=== PATIENT | male | born 1965 | race Caucasian/White ===

== ENCOUNTER 2016-09-10 21:37 | Inpatient (IN) | payer MEDICARE, MEDICAID ==
[2016-09-10 22:53] LABS: Hematocrit 36 % (42-52); Hemoglobin 11.5 g/dl (14.0-18.0); Mean Corpuscular HGB Conc 32 g/dl (31-36); Mean Corpuscular Hemoglobin 32 pg (27-31); Mean Corpuscular Volume 99 fL (80-94); Red Cell Distribution Width 19 % (10.5-15)
[2016-09-10 22:54] LABS: Add Diff/Slide Review? Slide Review Added; Comments Flag Yes
[2016-09-10 23:12] LABS: Mean Platelet Volume 10 um3 (7.4-10.4)
[2016-09-10 23:13] LABS: ALT 20 U/L (7-52); Albumin 4.4 g/dL (3.2-5.2); Alkaline Phosphatase 83 U/L (34-104); BUN/Creatinine Ratio 4.7 (8-20); Blood Urea Nitrogen 44 mg/dL (6-24); CO2 Carbon Dioxide 25 mmol/L (22-32); Calcium 9.3 mg/dL (8.6-10.3); Chloride 93 mmol/L (101-111); EGFR African American 7.7 (>60); Globulin 3.1 g/dL (2-4); Glucose 99 mg/dL (70-100); Macrocytosis 1+; Microcytosis 1+; Sodium 129 mmol/L (133-145); Total Protein 7.5 g/dL (6.4-8.9); Troponin I 0.13 ng/mL (<0.04)
[2016-09-11] MEDS ORDERED: Labetalol IV* 5 MG/ML 20 ML VIAL IV PUSH ONE ×2 (00:19→02:54)
[2016-09-11 00:20] LABS: Acetaminophen < 15 mcg/mL; Alcohol < 10 mg/dL (<10); Salicylate < 2.50 mg/dL (<30)
[2016-09-11] MEDS ORDERED: cefTRIAXone(*) 1 GM in NS 0.9% 50 ML* 50 ML IVPB ONE (03:08)
[2016-09-11 03:29] LABS: C Reactive Protein 90.15 mg/L (< 5.00)
[2016-09-11 03:53] LABS: Creatine Kinase 970 U/L (10-223)
[2016-09-11 03:56] LABS: Erythrocyte Sed Rate 20 mm/Hr (0-14)
[2016-09-11] MEDS ORDERED: hydrALAZINE IV* 20 MG/ML VIAL IV SLOW PU ONE ×3 (03:58→08:17)
--- NOTE | 2016-09-11 04:30 | HP ---
MEDICATION ADDENDUM NOW INCLUDED ON THIS REPORT ADMISSION HISTORY AND PHYSICAL: DATE OF ADMISSION: 09/11/16 PRIMARY CARE PROVIDER: Dr. Luis Landin. HEALTHCARE PROXY: None. CODE STATUS: Unable to establish. SOURCE OF INFORMATION: History obtained from EMS reports, discussion with ED providers, and brief discussion with Dr. Brooks. CHIEF COMPLAINT: Found altered mental status. HISTORY OF PRESENT ILLNESS: This is a 50-year-old man with a past medical history of end-stage renal disease, on hemodialysis, has been staying with his girlfriend in [place]. Apparently, he then altered and weak all day. He was unable to go to his dialysis session today. EMS was activated and he was found lying on the floor supine, first floor of the residence. He was transferred to [facility] [place], where he was found to be hypertensive, systolic blood pressures greatest 210/126. The patient able to participate in his history of present illness. His only contact was his girlfriend who did not leave her telephone number and was unable to contact her at this time. We discussed the care with Dr. Brooks, whose nursing staff indicated that when he was seen in dialysis clinic on Wednesday, they thought him to be altered and the perception that he may have been abusing drugs. In the ED, he received labetalol 20 mg x1 prior to hospitalist's consultation. Additionally, nursing was able to obtain from the patient's ____ that he does not make any urine and had been incontinent of stool. PAST MEDICAL HISTORY: End-stage renal disease, on hemodialysis; hypertension, otherwise unable to obtain. MEDICATIONS: Unable to obtain. ALLERGIES: Unable to obtain. FAMILY HISTORY: Unable to obtain. SOCIAL HISTORY: Unable to obtain. REVIEW OF SYSTEMS: Unable to obtain. PHYSICAL EXAMINATION GENERAL: Lying flat in bed, wakes to touch. Able to say his first name as Nestor. Quickly goes back to sleep. He was able to indicate that he was at the hospital. When touched, he just says aww, aww, aww. Unable to identify if he has any pain. I strongly asked the patient to sit up, he was able to sit up on the edge of the bed. He was wobbly, swing back and forth, would not lie back down when asked. Does not follow commands. He had no notable tremor. He was unable to establish asterixis. The patient will not put his arms out. VITAL SIGNS: When seen by this author, 196/94, heart rate 83, respiratory rate 16, 95% on 2 L, T-max in the emergency room 97.3. HEENT: Pupils are equal, round, and reactive to light. Unable to assess extraocular muscles. His face was symmetric. LUNGS: Clear. HEART: Regular rate and rhythm. ABDOMEN: Soft, nontender, and nondistended. EXTREMITIES: Warm and well-perfused without clubbing, cyanosis, or edema. SKIN: He has no notable skin breakdown. He has a fistula in his right arm with a good thrill and bruit. His skin has notable small scabs over his face, throughout his arms, of unknown etiology. DIAGNOSTIC STUDIES/LAB DATA: Labs reviewed: BUN 44, creatinine 9.36, lactic acid 1.9. Troponin 0.13. White blood cell count of 11, hemoglobin 11.5, platelets 105. Alcohol, acetaminophen, salicylates all negative. Brain CT overnight, impression: No involutional changes, no hemorrhage, no mass , no visible infarct, no hydrocephalus, shift or herniation. Chest x-ray on this author's read appears with mild pulmonary vascular congestion. ASSESSMENT AND PLAN: This is a 50-year-old man, known end-stage renal disease, on hemodialysis, presenting with altered mental status. 1. Altered mental status: Unknown etiology at this time. Certainly appears toxic metabolic, potentially drugs is confounding. Did not make urine. Cannot check urine for drugs. Needs serum test. Additionally, I think the patient will benefit from MRI just to rule out other etiologies such as posterior reversible encephalopathy syndrome in the setting of hypertensive urgency. Additionally, hypertension can be contributing to this patient's presentation. Needs closer control, received labetalol now and follow closely. The patient may benefit from a drip if repeated doses of antihypertensives do not help. In setting of leukocytosis, we will dose one-time dose ceftriaxone at this time. No other indication that the patient has an infection. We will add procalcitonin, although with unclear etiology of altered mental status, we will treat him with antibiotics for leukocytosis. Doubt meningitis in the absence of any fever, although certainly if blood pressure is controlled or has any fevers, will benefit from lumbar puncture. 2. End-stage renal disease. Discussed with Dr. Brooks. He will be dialyzed tomorrow. 3. Increased troponin. Suspect in the setting of hypertensive urgency, repeat troponin now. 4. DVT prophylaxis. Heparin subcu. ADDENDUM: HOME MEDICATIONS: Patient arrived with a bag of his home medications, which included: 1. Trazodone 50 mg at bedtime as needed. 2. 800 mg three times daily. 3. Gabapentin 300 mg daily. 4. Lexapro 20 mg daily. 5. Doxycycline 100 mg daily as needed. 6. Clonidine 0.1 mg daily. 7. Carvedilol 25 mg daily. 8. Additionally, patient had an EpiPen, although his allergy is unknown at this time. [id number]/[facility]PS #: [id number]/CPS #: [id number] FARSHAD
[2016-09-11] MEDS ORDERED: hydrALAZINE TAB* 10 MG PO ONE (05:11)
--- NOTE | 2016-09-11 05:28 | HP ---
ADDENDUM:* HOME MEDICATIONS: Patient arrived with a bag of his home medications, which included trazodone 50 mg at bedtime as needed, 800 mg three times daily, gabapentin 300 mg daily, Lexapro 20 mg daily, doxycycline 100 mg daily as needed , clonidine 0.1 mg daily, and carvedilol 25 mg daily. Additionally, patient had an EpiPen, although his allergy is unknown at this time. [id number]/[facility] #: [id number] [facility]
[2016-09-11] MEDS: Heparin VIAL(*) 5000 UNITS/ML VIAL (FIVE THOUSAND) SUBCUT SCH ×3 (05:51→23:41)
[2016-09-11] MEDS: cloNIDine 0.3 MG PATCH* 0.3 MG/24 HR 7 DAY PATCH TRANSDERM SCH (06:32)
[2016-09-11] MEDS: Acetaminophen TAB* 325 MG PO PRN ×2 (06:34→10:25)
--- NOTE | 2016-09-11 06:49 | ED ---
Clarence, DoctorPreethi, scribed for Rosemarie Rivera MD on 09/11/16 at 0116 . HPI Diabetic - HPI Summary HPI Summary: 50 year old male arrived to [facility] by EMS with AMS. Pt non-responsive, paperwork indicate that he is a diabetic pt who missed his dialysis today. He has PMHx of End Stage Renal Disease, doesn't appear to be on any medications. HPI limited due to Level 5 caveat. - History Of Current Complaint Chief Complaint: EDAltMentalStatus Time Seen by Provider: 09/10/16 21:48 Hx Obtained From: Other: - Level 5 caveat - Allergies/Home Medications Allergies/Adverse Reactions: Allergies Allergy/AdvReac Type Severity Reaction Status Date / Time Unable to Obtain Allergy Verified 09/10/16 21:45 Home Medications: Home Medications Carvedilol [Coreg] 25 mg PO DAILY 09/11/16 [History Confirmed 09/11/16] Clonidine HCl [Catapres 0.1 MG TAB] 0.1 mg PO DAILY 09/11/16 [History Confirmed 09/11/16] Doxycycline Hyclate [Morgidox [id number]] 100 mg PO DAILY PRN 09/11/16 [History Confirmed 09/11/16] Escitalopram Oxalate [Lexapro] 20 mg PO DAILY 09/11/16 [History Confirmed ] Gabapentin CAP(*) [Neurontin 300 CAP(*)] 300 mg PO DAILY 09/11/16 [History Confirmed 09/11/16] Sevelamer TAB* [Renvela TAB*] 800 mg PO TID 09/11/16 [History Confirmed 09/11/16 ] traZODone TAB* [Desyrel TAB*] 50 mg PO BEDTIME PRN 09/11/16 [History Confirmed 09/11/16] PMH/Surg Hx/FS Hx/Imm Hx Endocrine/Hematology History: Reports: Hx Diabetes Infectious Disease History: Denies: Traveled Outside the [place] in Last 30 Days - Social History Alcohol Use: None Substance Use Type: Reports: None Smoking Status (MU): Unknown if Ever Smoked Review of Systems - ROS Summary Review of Systems Summary: ROS limited due to Level 5 Caveat. Negative: Fever All Other Systems Reviewed And Are Negative: No Physical Exam - Summary Physical Exam Summary: PE Unobtainable due to Level 5 Caveat Triage Information Reviewed: Yes Vital Signs On Initial Exam: Initial Vitals Temp Pulse Resp BP Pulse Ox 97.3 F 97 16 174/149 97 09/10/16 21:40 09/10/16 21:40 09/10/16 21:40 09/10/16 21:40 09/10/16 21:40 Vital Signs Reviewed: Yes Diagnostics - Vital Signs Vital Signs Temp Pulse Resp BP Pulse Ox 09/10/16 23:37 92 16 205/118 93 09/10/16 21:40 97.3 F 97 16 174/149 97 - Laboratory Lab Results: Lab Results 09/10/16 09/10/16 09/10/16 Range/Units 22:45 22:45 22:45 WBC 11.0 H (3.5-10.8) 10^3/ul RBC 3.60 L (4.0-5.4) 10^6/ul Hgb 11.5 L (14.0-18.0) g/dl Hct 36 L (42-52) % MCV 99 H (80-94) fL MCH 32 H (27-31) pg MCHC 32 (31-36) g/dl RDW 19 H (10.5-15) % Plt Count 105 L (150-450) 10^3/ul MPV 10 (7.4-10.4) um3 Neut % (Auto) 84.4 H (38-83) % Lymph % (Auto) 6.6 L (25-47) % [place] % (Auto) 7.8 (1-9) % Eos % (Auto) 0 (0-6) % Baso % (Auto) 1.2 (0-2) % Absolute Neuts (auto) 9.3 H (1.5-7.7) 10^3/ul Absolute Lymphs (auto) 0.7 L (1.0-4.8) 10^3/ul Absolute Monos (auto) 0.9 H (0-0.8) 10^3/ul Absolute Eos (auto) 0 (0-0.6) 10^3/ul Absolute Basos (auto) 0.1 (0-0.2) 10^3/ul Absolute Nucleated RBC 0.01 10^3/ul Nucleated RBC % 0.1 Normal RBC Morphology Not Reportable Microcytosis 1+ Macrocytosis 1+ Elliptocytes 1+ Sodium 129 L (133-145) mmol/L Potassium TNP Chloride 93 L (101-111) mmol/L Carbon Dioxide 25 (22-32) mmol/L Anion Gap TNP BUN 44 H (6-24) mg/dL Creatinine 9.36 H (0.67-1.17) mg/dL Est GFR ( Amer) 7.7 (>60) Est GFR (Non-Af Amer) 6.0 (>60) BUN/Creatinine Ratio 4.7 L (8-20) Glucose 99 (70-100) mg/dL Lactic Acid (0.5-2.0) mmol/L Calcium 9.3 (8.6-10.3) mg/dL Total Bilirubin 1.20 H (0.2-1.0) mg/dL AST TNP ALT 20 (7-52) U/L Alkaline Phosphatase 83 (34-104) U/L Ammonia 34 (16-53) mol/L Troponin I 0.13 H* (<0.04) ng/mL Total Protein 7.5 (6.4-8.9) g/dL Albumin 4.4 (3.2-5.2) g/dL Globulin 3.1 (2-4) g/dL Albumin/Globulin Ratio 1.4 (1-3) Salicylates Pending Acetaminophen Pending Serum Alcohol Pending 09/10/16 Range/Units 22:45 WBC (3.5-10.8) 10^3/ul RBC (4.0-5.4) 10^6/ul Hgb (14.0-18.0) g/dl Hct (42-52) % MCV (80-94) fL MCH (27-31) pg MCHC (31-36) g/dl RDW (10.5-15) % Plt Count (150-450) 10^3/ul MPV (7.4-10.4) um3 Neut % (Auto) (38-83) % Lymph % (Auto) (25-47) % [place] % (Auto) (1-9) % Eos % (Auto) (0-6) % Baso % (Auto) (0-2) % Absolute Neuts (auto) (1.5-7.7) 10^3/ul Absolute Lymphs (auto) (1.0-4.8) 10^3/ul Absolute Monos (auto) (0-0.8) 10^3/ul Absolute Eos (auto) (0-0.6) 10^3/ul Absolute Basos (auto) (0-0.2) 10^3/ul Absolute Nucleated RBC 10^3/ul Nucleated RBC % Normal RBC Morphology Microcytosis Macrocytosis Elliptocytes Sodium (133-145) mmol/L Potassium Chloride (101-111) mmol/L Carbon Dioxide (22-32) mmol/L Anion Gap BUN (6-24) mg/dL Creatinine (0.67-1.17) mg/dL Est GFR ( Amer) (>60) Est GFR (Non-Af Amer) (>60) BUN/Creatinine Ratio (8-20) Glucose (70-100) mg/dL Lactic Acid 1.9 (0.5-2.0) mmol/L Calcium (8.6-10.3) mg/dL Total Bilirubin (0.2-1.0) mg/dL AST ALT (7-52) U/L Alkaline Phosphatase (34-104) U/L Ammonia (16-53) mol/L Troponin I (<0.04) ng/mL Total Protein (6.4-8.9) g/dL Albumin (3.2-5.2) g/dL Globulin (2-4) g/dL Albumin/Globulin Ratio (1-3) Salicylates Acetaminophen Serum Alcohol Result Diagrams: 09/10/16 22:45 09/11/16 00:10 Lab Statement: Any lab studies that have been ordered have been reviewed, and results considered in the medical decision making process. - CT Brain CT CT Interpretation Completed By: ED Physician - FINDINGS: Minimal involutional changes. No hemorrhage. No mass. No visible infarct. No hydrocephalus shift or herniation, Radiologist - FINDINGS: Minimal involutional changes. No hemorrhage. No mass. No visible infarct. No hydrocephalus shift or herniation - EKG 22:42 Cardiac Rate: NL - 89 bpm EKG Rhythm: Sinus Rhythm EKG Interpretation: [facility] EKG Comparison: Other - none to compare 23:21 Cardiac Rate: NL - 95 bpm EKG Rhythm: Sinus Rhythm Ectopy: None EKG Interpretation: [facility] EKG Comparison: No Significant Change - from EKG on 03/16 at 23:21 Diabetic Course/Dx - Course Course Of Treatment: 50 yo pt not known to this facility with esrd who apparently missed dialysis yesterday with ams, only responding yes or no to answers. Pt admitted by Dr. Concepcion, Ct brain negative - Diagnoses Provider Diagnoses: Altered mental state Discharge - Discharge Plan Condition: Guarded Disposition: ADMITTED TO [facility] documentation as recorded by the Doctor booker Tahera accurately reflects the service I personally performed and the decisions made by me, Rosemarie Rivera MD.
[2016-09-11 06:56] LABS: Hematocrit 35 % (42-52); Hemoglobin 11.3 g/dl (14.0-18.0); Mean Corpuscular HGB Conc 33 g/dl (31-36); Mean Corpuscular Hemoglobin 32 pg (27-31); Mean Corpuscular Volume 98 fL (80-94); Mean Platelet Volume 11 um3 (7.4-10.4); Red Blood Count 3.54 10^6/ul (4.0-5.4); Red Cell Distribution Width 19 % (10.5-15); White Blood Count 12.2 10^3/ul (3.5-10.8)
[2016-09-11 06:57] LABS: Comments Flag Yes
[2016-09-11 06:58] LABS: Add Diff/Slide Review? Slide Review Added
[2016-09-11 07:29] LABS: BUN/Creatinine Ratio 5.2 (8-20); Calcium 9.5 mg/dL (8.6-10.3); EGFR Non-African American 5.5 (>60); Potassium 5.5 mmol/L (3.5-5.0)
--- NOTE | 2016-09-11 07:36 | RAD ---
HISTORY: Altered mental status COMPARISONS: None TECHNIQUE: Multiple contiguous axial CT scans were obtained of the head without intravenous contrast. FINDINGS: HEMORRHAGE/INFARCT: There is no hemorrhage or acute infarct. MASSES/SHIFT: There is no mass or shift. EXTRA-AXIAL SPACES: There are no extra-axial fluid collections. SULCI AND VENTRICLES: The sulci and ventricles are normal in size and position for the patient's stated age. CEREBRUM: There are no focal parenchymal abnormalities. BRAINSTEM: There are no focal parenchymal abnormalities. CEREBELLUM: There are no focal parenchymal abnormalities. VESSELS: The vessels are grossly normal. PARANASAL SINUSES: The paranasal sinuses are clear. ORBITS: The orbits are unremarkable. BONES AND SOFT TISSUE: No bone or soft tissue abnormalities are noted. OTHER: None IMPRESSION: NO ACUTE INTRACRANIAL PATHOLOGY.
--- NOTE | 2016-09-11 07:39 | RAD ---
INDICATION: Altered mental status COMPARISON: None TECHNIQUE: AP seated portable imaging performed at 2257 hours is submitted. FINDINGS: Bones/Soft Tissues: There are no acute bony findings. Cardiomediastinal: The cardiac silhouette is mildly enlarged. The central hilar structures and interstitium are prominent and are most consistent with interstitial congestion. Lungs: There are no focal consolidative changes. Given the diffuse interstitial process, coexistent infiltrates are not excluded particularly in the right lung base. Suggest follow-up Pleura: There are no pleural effusions. Other: None IMPRESSION: SUSPECT INTERSTITIAL CONGESTION BUT THIS MUST BE CORRELATED WITH THE CLINICAL HISTORY
[2016-09-11] MEDS: Sevelamer TAB* 800 MG PO SCH ×4 (08:43→21:36)
[2016-09-11] MEDS: Gabapentin CAP(*) 300 MG PO SCH (08:43)
[2016-09-11] MEDS: Carvedilol TAB* 25 MG PO SCH (08:44)
[2016-09-11] MEDS: Citalopram TAB* 40 MG PO SCH (08:44)
[2016-09-11] MEDS ORDERED: Naloxone* 0.4 MG/ML 1 ML VIAL IV PUSH ONE (08:48)
[2016-09-11] MEDS ORDERED: cloNIDine TAB* 0.1 MG PO SCH (09:00)
[2016-09-11] MEDS ORDERED: Vancomycin(*) 1,000 MG in NS 0.9% 250 ML* 250 ML IVPB ONE (17:00)
[2016-09-12] MEDS: cefTRIAXone VIAL(*) 1,000 MG in NS 0.9% 50 ML* 50 ML IVPB SCH (04:13)
[2016-09-12] MEDS: Heparin VIAL(*) 5000 UNITS/ML VIAL (FIVE THOUSAND) SUBCUT SCH ×4 (04:58→23:02)
[2016-09-12] MEDS: Acetaminophen TAB* 325 MG PO PRN ×2 (06:37→12:11)
[2016-09-12 06:48] LABS: Hematocrit 33 % (42-52); Hemoglobin 10.9 g/dl (14.0-18.0); Mean Corpuscular HGB Conc 33 g/dl (31-36); Mean Corpuscular Hemoglobin 32 pg (27-31); Mean Corpuscular Volume 97 fL (80-94); Mean Platelet Volume 10 um3 (7.4-10.4); Red Cell Distribution Width 18 % (10.5-15); White Blood Count 9.8 10^3/ul (3.5-10.8)
[2016-09-12 06:49] LABS: Comments Flag Yes
[2016-09-12] MEDS: Gabapentin CAP(*) 300 MG PO SCH (08:48)
[2016-09-12] MEDS: Citalopram TAB* 40 MG PO SCH (08:49)
[2016-09-12] MEDS: Sevelamer TAB* 800 MG PO SCH ×3 (08:49→23:02)
[2016-09-12] MEDS: Carvedilol TAB* 25 MG PO SCH (08:49)
--- NOTE | 2016-09-12 19:28 | PN ---
Subjective Date of Service: 09/12/16 Interval History: . [place] [facility] [place] status and I gave Narcan on suspicion of opiate overdose. He certainly responded, and then went to dialysis and had further improvement. Patient will not divulge exact meds taken, because he wants to continue taking them to treat his pain. I could not have an intelligible conversation with Mr. Jiang. Called his mother, Kassidy Jiang, at [phone] -- did not get through Called his niece Kimberlee Blandon at [phone] - was told this is a wrong number At this time, I cannot be confident this is a safe discharge, and will look for further improvement before he can be discharged. consult requested. Family History: Unchanged from Admission Social History: Unchanged from Admission Past Medical History: Unchanged from Admission Objective Active Medications: . Acetaminophen (Tylenol Tab*) 650 mg PO Q4H PRN PRN Reason: FEVER/PAIN Last Admin: 09/12/16 12:11 Dose: 650 mg Carvedilol (Coreg Tab*) 25 mg PO DAILY [facility] Last Admin: 09/12/16 08:49 Dose: 25 mg Citalopram Hydrobromide (Celexa Tab*) 40 mg PO DAILY [facility] Last Admin: 09/12/16 08:49 Dose: 40 mg Clonidine HCl (Xouzrlcw-Yzm-6 0.3 Mg Patch*) 0.3 mg TRANSDERM Q7D [facility] Last Admin: 09/11/16 06:32 Dose: 0.3 mg Gabapentin (Neurontin Cap(*)) 300 mg PO DAILY [facility] Last Admin: 09/12/16 08:48 Dose: 300 mg Heparin Sodium (Porcine) (Heparin Vial(*)) 5,000 units SUBCUT Q8HR [facility] Last Admin: 09/12/16 13:56 Dose: Not Given Ceftriaxone Sodium 1,000 mg/ (Sodium Chloride) 50 mls @ 200 mls/hr IVPB Q24H [facility] Last Admin: 09/12/16 04:13 Dose: 200 mls/hr Sevelamer Carbonate (Renvela Tab*) 800 mg PO TID [facility] Last Admin: 09/12/16 13:55 Dose: 800 mg . Vital Signs 09/11/16 09/12/16 09/12/16 23:08 00:52 07:32 Temperature 98.8 F Pulse Rate 85 Respiratory 16 18 16 Rate Blood Pressure 161/93 (mmHg) O2 Sat by Pulse 99 Oximetry 09/12/16 09/12/16 09/12/16 07:49 08:48 10:48 Temperature 98.2 F Pulse Rate 74 Respiratory 16 18 16 Rate Blood Pressure 157/80 (mmHg) O2 Sat by Pulse 95 Oximetry 09/12/16 14:57 Temperature 97.3 F Pulse Rate 74 Respiratory 16 Rate Blood Pressure 160/96 (mmHg) O2 Sat by Pulse 100 Oximetry Appearance: dishevelled Ears/Nose/Mouth/Throat: - - poor oral dentition Neck: Trachea Midline Respiratory: Symmetrical Chest Expansion and Respiratory Effort Cardiovascular: RRR Abdominal: NL Sounds; No Tenderness; No Distention Lymphatic: No Cervical Adenopathy Extremities: - - R UExtr fistula. multiple skin lesions/excoriations likely secondary to induced trauma. Skin: - - crusted/scabbed lesions. he is picking at them in front of me. Neurological: - - very poor insight. evasive. difficult to communicate, uncooperative with assessment Lines/Tubes/Other Access: Clean, Dry and Intact Peripheral IV Nutrition: Taking PO's Result Diagrams: 09/12/16 06:21 09/11/16 06:27 Assess/Plan/Problems-Billing . Assessment: 50 yo man with ESRD/HD with altered mental status. Was [place] and got [place] [facility] [place] altered mental status. Will seek background information + bacteremia --> Staph altered mental status likely 2/2 opiates given response to narcan unclear if psychiatric disease as well given his inability to meaningfully grasp his situation. - Patient Problems (1) Opiate overdose Current Visit: Yes Status: Acute Priority: High Code(s): T40.601A - POISONING BY UNSP NARCOTICS, ACCIDENTAL, INIT Comment: - unable to get urine for UDS - empiric narcan 09/11 resulted in patient getting belligerant and wild ( confirming opiates in system) - patient later admitted illicit opiate use, but won't say what he takes or where he got it, even when I appealed to him that it was for more effective treatment and to get him on legitimate pain regimen, if it is needed. He makes it clear he has his own stratgy for treating his pain and he does not want to deviate from it. He denies he has a problem. (2) ESRD (end stage renal disease) on dialysis Current Visit: Yes Status: Acute Priority: High Code(s): N18.6 - END STAGE RENAL DISEASE; Z99.2 - DEPENDENCE ON RENAL DIALYSIS Comment: - M,W,F HD - Look to dialysis team for additional information (3) Bacteremia due to Staphylococcus Current Visit: Yes Status: Acute Priority: High Code(s): R78.81 - BACTEREMIA Comment: - Unclear of significance - Got vanco at end of HD on Monday 09/11 - started separately on ceftriaxone for additional coverage - await final BCX results - ECHO (TTE) ordered - ? assume IVDU given skin lesions and overal situation... (4) Patient incapable of making informed decisions Current Visit: Yes Status: Acute Priority: High Code(s): Z78.9 - OTHER SPECIFIED HEALTH STATUS Comment: - As on 09/12/16 and until further notice, Mr. Jiang is INCAPABLE of making an informed decision and is a danger to himself if left to his own care. He does not appreciate the fact that he was impaired by the illicit substances he took. He could not meaningfully participate in a discussion and was not understanding that I was even evaluating his ability to make decisions. This assessment should be repeated in the next 1-2 days, preferably by a psychiatrist , as he nears the point where he can be discharged from a medical perspective.
[2016-09-13] MEDS: Acetaminophen TAB* 325 MG PO PRN ×2 (01:45→08:17)
[2016-09-13] MEDS: cefTRIAXone VIAL(*) 1,000 MG in NS 0.9% 50 ML* 50 ML IVPB SCH (03:43)
[2016-09-13 05:51] LABS: Hematocrit 36 % (42-52); Hemoglobin 11.8 g/dl (14.0-18.0); Mean Corpuscular HGB Conc 33 g/dl (31-36); Mean Corpuscular Hemoglobin 32 pg (27-31); Mean Corpuscular Volume 98 fL (80-94); Mean Platelet Volume 10 um3 (7.4-10.4); Red Blood Count 3.71 10^6/ul (4.0-5.4); Red Cell Distribution Width 19 % (10.5-15); White Blood Count 7.9 10^3/ul (3.5-10.8)
[2016-09-13 06:02] LABS: BUN/Creatinine Ratio 6.1 (8-20); Calcium 9.4 mg/dL (8.6-10.3); EGFR African American 8.8 (>60); EGFR Non-African American 6.8 (>60); Potassium 4.6 mmol/L (3.5-5.0)
[2016-09-13] MEDS: Heparin VIAL(*) 5000 UNITS/ML VIAL (FIVE THOUSAND) SUBCUT SCH ×3 (06:42→20:49)
[2016-09-13] MEDS: Sevelamer TAB* 800 MG PO SCH ×3 (08:17→16:44)
[2016-09-13] MEDS: Gabapentin CAP(*) 300 MG PO SCH (08:17)
[2016-09-13] MEDS: Carvedilol TAB* 25 MG PO SCH ×2 (08:17→20:43)
[2016-09-13] MEDS: Citalopram TAB* 40 MG PO SCH (08:17)
[2016-09-13] MEDS ORDERED: Vancomycin - DIALYSIS DOSING* NOTE FOLLOW UP SCH (10:00)
[2016-09-13] MEDS ORDERED: Vancomycin(*) 1,000 MG in NS 0.9% 250 ML* 250 ML IVPB SCH (10:00)
[2016-09-13] MEDS ORDERED: Vancomycin(*) 1,000 MG in NS 0.9% 250 ML* 250 ML IVPB ONE (10:00)
[2016-09-13] MEDS: Vancomycin Random Level* NOTE FOLLOW UP SCH (11:28)
--- NOTE | 2016-09-13 13:59 | ECHO ---
Patient: JAVI HASSAN [facility] Rec#: [id number] : 1965 Date: 09/13/2016 Age: 50y Height: 170.18 cm / 67.0 in Weight: 63.96 kg / 141.0 lbs Sex: M BSA: 1.74 Room#: 405 Admit Date#: 09/11/2016 Type: Inpatient Referring: Bang Dave MD Reading: Delonte Canales DO Chief Nurse Executive: Val Ireland KEVAN CC: Urvashi BARRON,Apurv Transthoracic Echocardiogram Indication: Bacteremia BP: 153/111 HR: 69 Rhythm: NSR Findings History: + BC ,ESRD with hemodialysis,HTN. Technical Comments: The study was technically limited due to the patient's inability to lay in the left lateral decubitus position. Study done with pt OOB in a chair. Left Ventricle: The left ventricular chamber size is normal. Mild to moderate concentric left ventricular hypertrophy is observed. There is diffuse global hypokinesis of the left ventricle. There is mildly decreased left ventricular systolic function. The estimated ejection fraction is 45-50%. Abnormal left ventricular diastolic function is observed. Left Atrium: The left atrium is mildly dilated. Right Ventricle: The right ventricular cavity size is normal. The right ventricular global systolic function is mildly reduced. Right Atrium: The right atrium is slightly dilated. Aortic Valve: The aortic valve leaflets are mildly thickened. There is no evidence of aortic regurgitation. There is no evidence of aortic stenosis. Mitral Valve: The mitral valve leaflets appear normal. There is a trace of mitral regurgitation. There is no evidence of mitral stenosis. Tricuspid Valve: The tricuspid valve leaflets are normal. There is trace tricuspid regurgitation. Unable to estimate the right ventricular systolic pressure. There is no tricuspid stenosis. Pulmonic Valve: The pulmonic valve appears normal. There is a trace pulmonic regurgitation. There is no pulmonic stenosis. Pericardium: There is no significant pericardial effusion. Aorta: There is no dilatation of the ascending aorta. The aortic arch is not well visualized. There is no dilation of the aortic root. Pulmonary Artery: The main pulmonary artery is not well visualized. Venous: The inferior vena cava appears normal in size. There is a greater than 50% respiratory change in the inferior vena cava dimension. Conclusions The left ventricular chamber size is normal. Mild to moderate concentric left ventricular hypertrophy is observed. There is diffuse global hypokinesis of the left ventricle. There is mildly decreased left ventricular systolic function. The estimated ejection fraction is 45-50%. The left atrium is mildly dilated. The right ventricular cavity size is normal. The right ventricular global systolic function is mildly reduced. No significant valvular abnormalities noted. No prior studies available for comparison at time of interpretation. Measurements Name Value Normal Range RVIDd (AP) 2D 3.4 cm (0.9 - 2.6) RVDdMajor (2D) 3.6 cm (2.2 - 4.4) RAd ISD 4CH 4.9 cm (3.4 - 4.9) RA (A4C)W 4.9 cm (2.9 - 4.6) IVSd (2D) 1.3 cm (0.6 - 1) LVPWd (2D) 1.3 cm (0.6 - 1) LVIDd (2D) 4.2 cm (3.6 - 5.4) LVIDs (2D) 3.4 cm - LV FS (2D) 19 % (25 - 45) Aortic Annulus 2 cm (1.4 - 2.6) Ao root diameter (2D) 3.5 cm (2.1 - 3.5) Ascending Ao 3.1 cm (2.1 - 3.4) LA dimension (AP) 2D 4.4 cm (2.3 - 3.8) LAd ISD 4CH 6.1 cm (2.9 - 5.3) LA ISD 4CH W 3.9 cm (2.5 - 4.5) Name Value Normal Range LA ESV SP 4CH (A/L) 73 ml - LA ESV SP 2CH (A/L) 47 ml - LA ESV BP (A/L) 68 ml - LA ESV BP (A/L) index 39.07 ml/m2 - LA ESV SP 4CH (MOD) 69 ml - LA ESV SP 2CH (MOD) 44 ml - Name Value Normal Range MV E-wave Vmax 0.6 m/sec - MV deceleration time 228 msec - MV A-wave Vmax 0.6 m/sec - MV E:A ratio 1.01 ratio - LV septal e' Vmax 0.06 m/sec - LV lateral e' Vmax 0.07 m/sec - LV E:e' septal ratio 10 ratio - LV E:e' lateral ratio 11.67 ratio - Name Value Normal Range AV Vmax 1.4 m/sec - AV VTI 27.2 cm - AV peak gradient 7.42 mmHg - AV mean gradient 3.68 mmHg - LVOT Vmax 1 m/sec - LVOT VTI 17.7 cm - LVOT peak gradient 3.61 mmHg - LVOT mean gradient 1.38 mmHg - Name Value Normal Range IVC diameter 2 cm - Name Value Normal Range PV Vmax 0.7 m/sec - PV peak gradient 2.21 mmHg -
[2016-09-13 17:12] LABS: Phosphorus 5.1 mg/dL (2.5-5.0)
--- NOTE | 2016-09-13 18:37 | PN ---
Subjective Date of Service: 09/13/16 Interval History: This is a 50 yo male with ESRD requiring HD who receives most of his care in the [place] area who presented with AMS. Unable to obtain initial urine tox as he does not produce urine. Narcan was given empirically which he responded to yesterday. Patient has not given a clear history, but he seems to have ingested something which he not forth coming about. Skin exam is suggestive of possible IV drug abuse, which patient denies. Blood cultures are now growing staph epi in 2/4 bottles. Patient reports pain diffusely, but denies any focal complaints. No fever or chills. Objective Active Medications: Acetaminophen (Tylenol Tab*) 650 mg PO Q4H PRN PRN Reason: FEVER/PAIN Last Admin: 09/13/16 08:17 Dose: 650 mg Carvedilol (Coreg Tab*) 25 mg PO BID [facility] Citalopram Hydrobromide (Celexa Tab*) 40 mg PO DAILY [facility] Last Admin: 09/13/16 08:17 Dose: 40 mg Clonidine HCl (Jxzaknpe-Cyw-3 0.3 Mg Patch*) 0.3 mg TRANSDERM Q7D [facility] Last Admin: 09/11/16 06:32 Dose: 0.3 mg Gabapentin (Neurontin Cap(*)) 300 mg PO DAILY [facility] Last Admin: 09/13/16 08:17 Dose: 300 mg Heparin Sodium (Porcine) (Heparin Vial(*)) 5,000 units SUBCUT Q8HR [facility] Last Admin: 09/13/16 12:24 Dose: Not Given Pharmacy Consult (Vancomycin - Dialysis Dosing*) 1 note FOLLOW UP .SEE COMMENTS [facility] Pharmacy Consult (Vancomycin Random Level*) 1 note FOLLOW UP DAILY@0600 [facility] Last Admin: 09/13/16 11:28 Dose: 1 note Sevelamer Carbonate (Renvela Tab*) 1,600 mg PO TID WITH MEALS [facility] Vital Signs: Temp Pulse Resp BP Pulse Ox 97.8 F 72 16 137/78 100 09/13/16 15:34 09/13/16 15:34 09/13/16 15:34 09/13/16 15:34 09/13/16 15:34 Oxygen Devices in Use Now: None Appearance: Confused, slightly lethargic, in NAD Ears/Nose/Mouth/Throat: - - poor oral hygiene Neck: NL Appearance and Movements; NL JVP Respiratory: Symmetrical Chest Expansion and Respiratory Effort, Clear to Auscultation Cardiovascular: RRR, - - faint murmur appreciated Abdominal: NL Sounds; No Tenderness; No Distention Extremities: No Edema Skin: - - small ulcerated lesions over much of arms Neurological: - - alert and seemingly oriented Result Diagrams: 09/13/16 05:05 09/13/16 05:05 Additional Lab and Data: . Microbiology and Other Data: Microbiology 09/11/16 00:10 Aerobic Blood Culture - Final Blood Venous Strep Mitis/Strep Oralis Anaerobic Blood Culture - Final Staphylococcus Epidermidis Blood Culture - Final 09/11/16 00:10 Aerobic Blood Culture - Final Blood Venous Staphylococcus Epidermidis Anaerobic Blood Culture - Preliminary No Growth Day 2 Blood Culture - Final Blood MRSA/MSSA (PCR) - Final Mrsa Negative S.aureus Negative Diagnostic Imaging: CXR - possible interstitial edema CT brain - NAD Echo - EF 45-50%, no vegetations or other valvular disease Assess/Plan/Problems-Billing . Assessment: 50 yo man with ESRD/HD with altered mental status. Was visiting [place] and [place] [facility] [place]. - Patient Problems (1) Encephalopathy Comment: Likely toxic secondary to opiate overdose Some response to narcan Remains confused but more alert (2) Bacteremia due to Staphylococcus Comment: 2/4 blood culture bottles growing staph epi, R to oxacillin, PCN, clinda and erythromycin Cont vanco, will monitor random troughs daily and dose accordingly in the setting of ESRD 1/4 blood culture bottles growing strep of uncertain signficance No obvious source of infection TTE neg for vegetation, MARIZA ordered for tomorrow Suspect IVDU with strong concern for endocarditis (3) ESRD (end stage renal disease) on dialysis Comment: - M,W,F HD (4) Demand ischemia Comment: No evidence of ACS Likely due to septicemia and poor renal clearance (5) HTN (hypertension) Comment: Near normotensive on reported home regimen Status and Disposition: Patient requires continued inpatient care. Discharge planning is not clear at this time.
[2016-09-14] MEDS: Heparin VIAL(*) 5000 UNITS/ML VIAL (FIVE THOUSAND) SUBCUT SCH ×3 (06:35→20:24)
[2016-09-14] MEDS ORDERED: Lidocaine 2% VISCOUS* 15 ML UDC ONE (09:39)
[2016-09-14] MEDS ORDERED: fentaNYL* 50 MCG/ML 2 ML VIAL (100 MCG VIAL) ONE (09:39)
[2016-09-14] MEDS ORDERED: Flumazenil* 0.1 MG/ML 5 ML MDV ONE (09:39)
[2016-09-14] MEDS ORDERED: Midazolam* 1 MG/ML 5 ML VIAL (5 MG) ONE (09:39)
[2016-09-14] MEDS ORDERED: Naloxone* 0.4 MG/ML 1 ML VIAL ONE (09:39)
--- NOTE | 2016-09-14 11:10 | TEE ---
Patient: JAVI HASSAN [facility] Rec#: [id number] : 1965 Date: 09/14/2016 Age: 50y Height: 170.18 cm / 67.0 in Weight: 63.96 kg / 141.0 lbs Sex: M BSA: 1.74 Room#: 405 Admit Date#: 09/11/2016 Type: Inpatient Referring: Ronni Willams Performing: Sb Munoz MD Reading: Sb Munoz MD Rotary Drill Operator Helper: Lida Jackson RN RD Rotary Drill Operator Helper: Christine Schwartz Nurse: Mariana Batista RN CC: Urvashi BARRON,[facility] Transesophageal Echocardiogram Indication: Bacteremia BP: 164/91 HR: 72 Rhythm: NSR Findings History: ESRD with hemodialysis, HTN, +BC staph epi. Technical Comments: The study quality is good. Left Ventricle: The left ventricular chamber size is normal. Global left ventricular wall motion and contractility are within normal limits. There is normal left ventricular systolic function. The estimated ejection fraction is 55-60%. Left Atrium: The left atrium is mildly dilated. No thrombus is visualized within the left atrium. There is no thrombus visualized in the left atrial appendage. Right Ventricle: The right ventricular cavity size is normal. The right ventricular global systolic function is normal. Right Atrium: The right atrium is mildly dilated. Interatrial septum appears intact without evidence of shunting. The bubble study is negative. A patent foramen ovale is not demonstrated with color Doppler and agitated contrast. Aortic Valve: The aortic valve is trileaflet. There is no evidence of aortic regurgitation. There is no evidence of aortic stenosis. There is no aortic vegetation present. Mitral Valve: The mitral valve leaflets appear normal. There is mild mitral regurgitation. No vegetation is observed on the mitral valve. Tricuspid Valve: The tricuspid valve leaflets are normal. There is trace tricuspid regurgitation. No vegetation is observed on the tricuspid valve. Pulmonic Valve: The pulmonic valve appears normal. There is a trace pulmonic regurgitation. No vegetation is observed on the pulmonic valve. Pericardium: There is no significant pericardial effusion. Aorta: There is no dilatation of the ascending aorta. There is mild dilatation of the aortic root. There is minimal atherosclerotic plaque seen in the visualized segments of the aorta. Pulmonary Artery: The main pulmonary artery appears normal. Venous: The bicaval view was obtained and appears normal. The pulmonary veins appear normal in size. 1 of 4 visualized. The flow pattern of the pulmonary veins appear normal. MARIZA Procedures: History and physical as well as labs were reviewed. The patient was in a fasting state. Risks and benefits of the procedure, including alternatives, were discussed and written informed consent was obtained. The patient and/or their health care ict sales representative expressed understanding of the procedure, risks and benefits. Baseline and continuous monitoring of blood pressure, heart rate, pulse oximetry and heart rhythm was performed throughout the procedure. The appropriate time-out procedure was performed as per [facility] protocol. The patient was placed in the left lateral decubitus position. The patient's posterior pharynx was anesthetized with 20ml of 2% viscous lidocaine. The patient received IV Midazolam with a total dose of 4 mg. The patient received IV Fentanyl with a total dose of 25 mcg. An oral bite block was inserted for protection of oral dentition. The multiplane transesophageal echocardiogram probe was inserted through the posterior oropharynx and advanced into the esophagus without difficulty. Multiple 2D images were obtained of the heart and its related structures. Color flow Doppler was used for evaluation. Spectral Doppler was also used. The atrial septum was interrogated with color flow Doppler. At the conclusion of the procedure the probe was removed with continuous suction without complications. Contrast: Normal saline was used as contrast for the bubble study. Intravenous contrast was used to help determine presence of intracardiac shunting. Image 36. Conclusions Global left ventricular wall motion and contractility are within normal limits. There is normal left ventricular systolic function. The estimated ejection fraction is 55-60%. There is no thrombus visualized in the left atrial appendage. Interatrial septum appears intact without evidence of shunting. A patent foramen ovale is not demonstrated with color Doppler and agitated contrast. There is no evidence of aortic regurgitation. There is no aortic vegetation present. There is mild mitral regurgitation. No vegetation is observed on the mitral valve. There is trace tricuspid regurgitation. No vegetation is observed on the tricuspid valve. No vegetation is observed on the pulmonic valve. There is no significant pericardial effusion. Measurements Name Value Normal Range Aortic Annulus 2.2 cm (1.4 - 2.6) Ao root diameter (2D) 3.6 cm (2.1 - 3.5) Ascending Ao 3.3 cm (2.1 - 3.4) Name Value Normal Range MV E-wave Vmax 0.5 m/sec - MV deceleration time 220 msec - MV A-wave Vmax 0.5 m/sec - MV E:A ratio 1 ratio - Name Value Normal Range AV Vmax 1.4 m/sec - AV VTI 30.5 cm - AV peak gradient 8.36 mmHg - AV mean gradient 4.36 mmHg -
[2016-09-14] MEDS: Sevelamer TAB* 800 MG PO SCH ×3 (13:35→16:23)
[2016-09-14] MEDS: Carvedilol TAB* 25 MG PO SCH ×2 (13:35→20:24)
[2016-09-14] MEDS: Gabapentin CAP(*) 300 MG PO SCH (16:24)
[2016-09-14] MEDS: Citalopram TAB* 40 MG PO SCH (16:24)
--- NOTE | 2016-09-14 16:57 | PN ---
Subjective Date of Service: 09/14/16 Interval History: Patient offers no acute complaints. He underwent MARIZA this am and hemodialysis this afternoon. Remains confused, but ambulating and conversational. Objective Active Medications: Acetaminophen (Tylenol Tab*) 650 mg PO Q4H PRN PRN Reason: FEVER/PAIN Last Admin: 09/13/16 08:17 Dose: 650 mg Carvedilol (Coreg Tab*) 25 mg PO BID [facility] Last Admin: 09/14/16 13:35 Dose: Not Given Citalopram Hydrobromide (Celexa Tab*) 40 mg PO DAILY [facility] Last Admin: 09/14/16 16:24 Dose: 40 mg Clonidine HCl (Cjcmcdpn-Spq-2 0.3 Mg Patch*) 0.3 mg TRANSDERM Q7D [facility] Last Admin: 09/11/16 06:32 Dose: 0.3 mg Gabapentin (Neurontin Cap(*)) 300 mg PO DAILY [facility] Last Admin: 09/14/16 16:24 Dose: 300 mg Heparin Sodium (Porcine) (Heparin Vial(*)) 5,000 units SUBCUT Q8HR [facility] Last Admin: 09/14/16 16:28 Dose: Not Given Pharmacy Consult (Vancomycin - Dialysis Dosing*) 1 note FOLLOW UP .SEE COMMENTS [facility] Pharmacy Consult (Vancomycin Random Level*) 1 note FOLLOW UP DAILY@0600 [facility] Last Admin: 09/13/16 11:28 Dose: 1 note Sevelamer Carbonate (Renvela Tab*) 1,600 mg PO TID WITH MEALS [facility] Last Admin: 09/14/16 16:23 Dose: 1,600 mg Vital Signs: Temp Pulse Resp BP Pulse Ox 96.7 F 65 16 151/79 100 09/14/16 11:53 09/14/16 07:19 09/14/16 16:24 09/14/16 07:19 09/14/16 07:19 Oxygen Devices in Use Now: None Appearance: Alert, well appearing, in NAD. Walking with a nurses aide around the halls taking selfie pictures Neck: NL Appearance and Movements; NL JVP Respiratory: Symmetrical Chest Expansion and Respiratory Effort, Clear to Auscultation Cardiovascular: NL Sounds; No Murmurs; No JVD, RRR Abdominal: NL Sounds; No Tenderness; No Distention Extremities: No Edema Skin: No Rash or Ulcers Neurological: - - alert, confused Result Diagrams: 09/13/16 05:05 09/13/16 05:05 Additional Lab and Data: . Microbiology and Other Data: Microbiology 09/11/16 00:10 Aerobic Blood Culture - Final Blood Venous Strep Mitis/Strep Oralis Anaerobic Blood Culture - Final Staphylococcus Epidermidis Blood Culture - Final 09/11/16 00:10 Aerobic Blood Culture - Final Blood Venous Staphylococcus Epidermidis Anaerobic Blood Culture - Preliminary No Growth Day 2 Blood Culture - Final Blood MRSA/MSSA (PCR) - Final Mrsa Negative S.aureus Negative Diagnostic Imaging: CXR - possible interstitial edema CT brain - NAD Echo - EF 45-50%, no vegetations or other valvular disease Assess/Plan/Problems-Billing . Assessment: 50 yo man with ESRD/HD with altered mental status. Was visiting [place] and got dropped off at [facility] [place] with altered mental status. - Patient Problems (1) Encephalopathy Comment: Likely toxic secondary to opiate overdose as he did respond initially to narcan His level of alertness has improved, but his persistently confused It is unlikely that his confusion is still related to acute ingestion as he has undergone 2 dialysis sessions without resolution Called and spoke with his PCP Dr Lacho Ellsworth out of [place] who reported this behavior is unusual for him and has no history of psychosis, he states he has seen him in a similar state when missing dialysis in the past, likely due to uremia and it often takes several days for him to clear MRI is pending for later this evening, will continue to look for organic causes of this persistent delirium (2) Bacteremia due to Staphylococcus Comment: 2/4 blood culture bottles growing staph epi, R to oxacillin, PCN, clinda and erythromycin 1/4 blood culture bottles growing strep of uncertain signficance No obvious source of infection TTE and MARIZA neg for vegetation Repeat blood cultures are negative at 24 hours ?whether initial blood cultures were a contaminant Plan to cont vanco, will monitor random troughs daily and dose accordingly in the setting of ESRD (3) ESRD (end stage renal disease) on dialysis Comment: - M,W,F HD (4) Demand ischemia Comment: No evidence of ACS Likely due to septicemia and poor renal clearance (5) HTN (hypertension) Comment: Near normotensive on reported home regimen Status and Disposition: Patient requires continued inpatient care. Discharge planning is not clear at this time. MRI pending
[2016-09-14] MEDS: Acetaminophen TAB* 325 MG PO PRN (20:26)
--- NOTE | 2016-09-14 21:26 | RAD ---
Indication: Confusion. Image sequences: Sagittal and axial T1, axial T2, FLAIR, diffusion and susceptibility weighted images of the brain were obtained. Ventricular structures are midline. No midline shift is noted. Extraction spaces are unremarkable. The FLAIR images demonstrates periventricular signal abnormality likely representing microvascular change. No evidence of any restriction of diffusion is noted. No susceptibility artifact is noted. Orbits and paranasal sinuses demonstrates mucosal thickening of the right maxillary sinus. IMPRESSION: No evidence of acute infarct is noted. Periventricular signal abnormalities consistent with microvascular change. Chronic sinusitis right maxillary sinus.
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
[2016-09-14] MEDS ORDERED: LORazepam INJ* 2 MG/ML 1 ML VIAL IV PUSH PRN (22:19)
[2016-09-14] MEDS: LORazepam INJ* 2 MG/ML 1 ML VIAL ONE ×2 (22:30→23:09)
[2016-09-15] MEDS: Heparin VIAL(*) 5000 UNITS/ML VIAL (FIVE THOUSAND) SUBCUT SCH ×3 (06:07→20:18)
[2016-09-15] MEDS: Carvedilol TAB* 25 MG PO SCH ×2 (08:50→20:17)
[2016-09-15] MEDS: Sevelamer TAB* 800 MG PO SCH ×3 (08:50→17:07)
[2016-09-15] MEDS: Gabapentin CAP(*) 300 MG PO SCH (08:50)
[2016-09-15] MEDS: Citalopram TAB* 40 MG PO SCH (08:51)
[2016-09-15] MEDS: Vancomycin Random Level* NOTE FOLLOW UP SCH ×2 (08:51→18:30)
[2016-09-15] MEDS ORDERED: Vancomycin(*) 1,000 MG in NS 0.9% 250 ML* 250 ML IVPB ONE (10:00)
[2016-09-15] MEDS: Cetirizine* 10 MG TAB PO SCH (11:14)
[2016-09-15 15:38] LABS: C Reactive Protein 69.53 mg/L (< 5.00)
--- NOTE | 2016-09-15 22:37 | PN ---
Subjective Date of Service: 09/15/16 Interval History: Patient offers no new complaints, but wishes to be released from the hospital. He remains quite confused on the details surrounding his hospitalization. Patient has been increasingly aggressive with the staff. Objective Active Medications: Acetaminophen (Tylenol Tab*) 650 mg PO Q4H PRN PRN Reason: FEVER/PAIN Last Admin: 09/14/16 20:26 Dose: 650 mg Carvedilol (Coreg Tab*) 25 mg PO BID [facility] Last Admin: 09/15/16 20:17 Dose: 25 mg Cetirizine HCl (Zyrtec*) 10 mg PO DAILY [facility] Last Admin: 09/15/16 11:14 Dose: 10 mg Citalopram Hydrobromide (Celexa Tab*) 40 mg PO DAILY [facility] Last Admin: 09/15/16 08:51 Dose: 40 mg Clonidine HCl (Panqupxl-Xud-5 0.3 Mg Patch*) 0.3 mg TRANSDERM Q7D [facility] Last Admin: 09/11/16 06:32 Dose: 0.3 mg Gabapentin (Neurontin Cap(*)) 300 mg PO DAILY [facility] Last Admin: 09/15/16 08:50 Dose: 300 mg Heparin Sodium (Porcine) (Heparin Vial(*)) 5,000 units SUBCUT Q8HR [facility] Last Admin: 09/15/16 20:18 Dose: Not Given Lorazepam (Ativan Inj*) 1 mg IV PUSH Q6H PRN PRN Reason: Anxiety/Agitation Risperidone (Risperdal) 0.5 mg PO BID [facility] Sevelamer Carbonate (Renvela Tab*) 1,600 mg PO TID WITH MEALS [facility] Last Admin: 09/15/16 17:07 Dose: 1,600 mg Vital Signs: Temp Pulse Resp BP Pulse Ox 98.4 F 67 16 135/93 100 09/15/16 07:38 09/15/16 07:32 09/15/16 10:50 09/15/16 07:32 09/15/16 07:32 Oxygen Devices in Use Now: None Appearance: Well appearing, in NAD Respiratory: Symmetrical Chest Expansion and Respiratory Effort, Clear to Auscultation Cardiovascular: NL Sounds; No Murmurs; No JVD, RRR Extremities: No Edema Neurological: - - alert and oriented but easily confused on details and mildly aggressive in his speech pattern Result Diagrams: 09/13/16 05:05 09/13/16 05:05 Additional Lab and Data: . Microbiology and Other Data: Microbiology 09/11/16 00:10 Aerobic Blood Culture - Final Blood Venous Strep Mitis/Strep Oralis Anaerobic Blood Culture - Final Staphylococcus Epidermidis Blood Culture - Final 09/11/16 00:10 Aerobic Blood Culture - Final Blood Venous Staphylococcus Epidermidis Anaerobic Blood Culture - Preliminary No Growth Day 2 Blood Culture - Final Blood MRSA/MSSA (PCR) - Final Mrsa Negative S.aureus Negative Diagnostic Imaging: CXR - possible interstitial edema CT brain - NAD Echo - EF 45-50%, no vegetations or other valvular disease MARIZA - neg vegetations MRI brain - NAD Assess/Plan/Problems-Billing . Assessment: 50 yo man with ESRD/HD with altered mental status. Was visiting [place] and got dropped off at [place] with altered mental status. - Patient Problems (1) Encephalopathy Comment: Likely toxic secondary to opiate overdose as he did respond initially to narcan His level of alertness has improved, but his persistently confused It is unlikely that his confusion is still related to acute ingestion as he has undergone 2 dialysis sessions without resolution Spoke with his PCP Dr Lacho Ellsworth out of [place] who reported this behavior is unusual for him and has no history of psychosis, he states he has seen him in a similar state when missing dialysis in the past, likely due to uremia and it often takes several days for him to clear MRI is negative for acute pathology Appreciated input from psychiatry who does not believe his persistent symptoms are indicative of underlying psychiatric pathology but suggested initiating low dose antipsychotic Discussed best choice in the setting of ESRD with pharmacy who suggested risperdal Started 0.5mg Risperdal bid (2) Bacteremia due to Staphylococcus Comment: Initial blood cultures grew staph epi in 2/4 bottles and strep in 1/4 bottles Repeat cultures are negative No obvious source of infection TTE and MARIZA neg for vegetation ?whether initial blood cultures were a contaminant Discontinued vancomycin at this time (3) ESRD (end stage renal disease) on dialysis Comment: - M,W,F HD (4) Demand ischemia Comment: No evidence of ACS Likely due to septicemia and poor renal clearance (5) HTN (hypertension) Comment: Near normotensive on reported home regimen Status and Disposition: Patient requires continued inpatient care. Discharge planning is not clear at this time. He remains unsafe for discharge.
--- NOTE | 2016-09-15 23:28 | CONS ---
Please note as regards the time of editing/signing of this document, that it was unavailable for editing yesterday in the EMR, and required intervention of IT to make it available for editing, which was done today. CONSULTATION REPORT: DATE OF CONSULT: 09/15/16 REQUESTING PHYSICIAN: Consultation performed on request of DONA Zazueta. LOCATION: [address] [place] [address] in [facility] Consult question: psychosis? IDENTIFICATION: Mr. Jiang has been admitted after being found nonresponsive supine in his home. He did respond to Narcan indicating opioids on board. He has been on chronic dialysis for end-stage renal disease. He has been stating he wants to leave the hospital despite needing antibiotic treatment for bacteremia. HISTORY OF PRESENT ILLNESS: Information was gathered by interview with the patient and review of the electronic medical record. I did attempt to contact collateral sources such as girlfriend, Radha Terry, but was unable to reach her and was also unable to reach primary care physician, Dr. Ellsworth with a call to his office. Mr. Jiang reports to me that he is very angry, that he wants to leave the hospital, that he feels he is being held against his will, which indeed he is, and he wants to leave. Leaving would pose risk of if he is not first treated for bacteremia. He told me that he was treated for mood disturbance following a divorce, also that there have been some unspecified troubles with his children. His report to me is difficult to follow, in that he seems to believe we have discussed these things before. He states that what occurred prior to admission was that rather than using a baby gate in his girlfriend's home for children, they used a flat screen TV to block a doorway and that he walked over the TV in the doorway and that is why he was found supine on the floor. He does say that he uses OxyContin for pain, but when I observed to him that he had response to Narcan here in the hospital, he takes a dissembling response and does not address this directly as a point of concern. He instead begins to talk again about how he should be back in [place] and paying his rent and other bills there. I did discuss with him the possibility of having social work staff on the medical floor, contact people to whom he needs to pay bills to let them know that he is in the hospital and to seek a balaji period for payment of these bills. He reports that he has been trying to do this himself and has been unable to get a response, but his report is rather rambling and it is unclear whether he is talking about contacting the people trying to collect the money or his girlfriend to help with taking care of the bills or both. He does not show either appreciation of the consequences of his decision to leave against medical advice, which could be lethal, nor does he even seem to appreciate the very fact of the matter that he is receiving treatment for bacteremia. He claims that this is not so, that instead he came in here for dialysis and that there is some sort of financial arrangements that requires that he remain here. He does have on a micro-level a degree of lucidity in recalling for example the phone number of his girlfriend and in fact, the phone number of his primary care physician. He is alert and oriented to person, place , time, and situation, but his larger reasoning capacity is derailed such that he cannot reason clearly on issues bearing on his serious risks of serious physical harm with refusal of medical treatment. MENTAL STATUS EXAM: He reports that his mood is angry with congruent affect. He is sitting shirtless in the room. He has multiple tattoos. He has a restrained hostile attitude. He only makes furtive eye contact, mostly looking down and around the room. His speech has regular, rate and rhythm, and volume with a little bit of extra energy in it expressive of the anger that he tells me of, though he does not yell at me. He denies any auditory or visual hallucinations or paranoid ideation, although he clearly demonstrates paranoid ideation with regard to the motivation of medical staff here. He denies any suicidal or homicidal ideation. His insight and judgement are impaired. His impulse control appears tenuous, but so far he has remained adequately compliant not to have a major outburst or perpetrate any violence. Concern has been raised by medical staff that this is what his presentation is escalating towards. PSYCHIATRIC HISTORY: The patient reports he has been receiving care at [facility]. He did not know his provider there. He believes it has been treatment of depression primarily that he has been receiving there. He reports that has been for about last year and half. Interestingly, he notes that his onset of renal failure was with poisoning about a year and half ago. Physical examination, past medical history, vital signs, and laboratory values: for details of these please refer to the documentation of providers on the medical floor. Most notable for end-stage renal disease and acute bacteremia, currently on IV antibiotics, but with some question of contaminant of first grown cultures due to no growth on repeat culture. Also hypertension, episode of demand ischemia, and encephalopathy currently. ASSESSMENT AND RECOMMENDATION: Mr. Jiang clearly could be at lethal risk in ignoring medical advice against discharging. Although on a micro-scale he demonstrates orientation to person, place, time, situation, recall of phone numbers and so on, on a macro-scale, his reasoning is off and contaminated by paranoid thought process. He does not have any known history of psychotic disorder, but has had treatment for depressive disorder. It is likely that his current disorganized thought is secondary to his current medical condition and may clear with stabilization from that. It would be my recommendation that for agitation at this point, he be tried on very low doses to begin with Haldol perhaps 0.5 mg every 4 hours as needed. He would pose too high risk of harm if leaving AMA in any case does not appear to have any appreciation to consequences or such decision are to be able to reason through the situation, so I do agree with Dr. Dc's assessment that he should be deemed as lacking capacity for that decision and continue to receive potentially life-saving treatment here. PSYCHIATRIC DIAGNOSES: The patient reports historical diagnosis of depressive disorder, uncertain as to whether this is major depressive disorder or other specified as I am unable given his current lack of cooperation and unreliability of report, able to elicit precise count of symptoms. Also, other specified psychosis, rule out secondary to current medical condition. [id number]/[facility] #: [id number] [facility]ALTHKasey
[2016-09-16] MEDS: Acetaminophen TAB* 325 MG PO PRN
[2016-09-16] MEDS: Heparin VIAL(*) 5000 UNITS/ML VIAL (FIVE THOUSAND) SUBCUT SCH ×3 (05:45→21:39)
[2016-09-16 07:09] LABS: Hematocrit 30 % (42-52); Mean Corpuscular HGB Conc 33 g/dl (31-36); Mean Corpuscular Hemoglobin 32 pg (27-31); Mean Corpuscular Volume 98 fL (80-94); Mean Platelet Volume 10 um3 (7.4-10.4); Red Blood Count 3.09 10^6/ul (4.0-5.4); Red Cell Distribution Width 17 % (10.5-15); White Blood Count 5.7 10^3/ul (3.5-10.8)
[2016-09-16 07:10] LABS: Comments Flag Yes
[2016-09-16 07:26] LABS: BUN/Creatinine Ratio 8.6 (8-20); C Reactive Protein 19.5 mg/L (< 5.00); Calcium 8.7 mg/dL (8.6-10.3); EGFR African American 8.1 (>60); EGFR Non-African American 6.3 (>60); Potassium 5.2 mmol/L (3.5-5.0)
[2016-09-16] MEDS: Gabapentin CAP(*) 300 MG PO SCH (08:04)
[2016-09-16] MEDS: Citalopram TAB* 40 MG PO SCH (08:05)
[2016-09-16] MEDS: Sevelamer TAB* 800 MG PO SCH ×4 (08:05→21:21)
[2016-09-16] MEDS: Cetirizine* 10 MG TAB PO SCH (08:05)
[2016-09-16] MEDS: Carvedilol TAB* 25 MG PO SCH ×2 (08:05→21:21)
--- NOTE | 2016-09-16 18:00 | PN ---
Subjective Date of Service: 09/16/16 Interval History: Patient offers no acute complaints. Underwent dialysis today. He is very frustrated at his inability to leave the hospital. Objective Active Medications: Acetaminophen (Tylenol Tab*) 650 mg PO Q4H PRN PRN Reason: FEVER/PAIN Last Admin: 09/16/16 00:00 Dose: 650 mg Carvedilol (Coreg Tab*) 25 mg PO BID [facility] Last Admin: 09/16/16 08:05 Dose: 25 mg Cetirizine HCl (Zyrtec*) 10 mg PO DAILY [facility] Last Admin: 09/16/16 08:05 Dose: 10 mg Citalopram Hydrobromide (Celexa Tab*) 40 mg PO DAILY [facility] Last Admin: 09/16/16 08:05 Dose: 40 mg Clonidine HCl (Coxdgdrk-Mal-5 0.3 Mg Patch*) 0.3 mg TRANSDERM Q7D [facility] Last Admin: 09/11/16 06:32 Dose: 0.3 mg Gabapentin (Neurontin Cap(*)) 300 mg PO DAILY [facility] Last Admin: 09/16/16 08:04 Dose: 300 mg Heparin Sodium (Porcine) (Heparin Vial(*)) 5,000 units SUBCUT Q8HR [facility] Last Admin: 09/16/16 16:46 Dose: Not Given Lorazepam (Ativan Inj*) 1 mg IV PUSH Q6H PRN PRN Reason: Anxiety/Agitation Last Admin: 09/16/16 12:24 Dose: 1 mg Risperidone (Risperdal) 0.5 mg PO BID [facility] Last Admin: 09/16/16 08:04 Dose: 0.5 mg Sevelamer Carbonate (Renvela Tab*) 1,600 mg PO TID WITH MEALS [facility] Last Admin: 09/16/16 12:12 Dose: 1,600 mg Vital Signs: Temp Pulse Resp BP Pulse Ox 97.2 F 74 18 127/67 99 09/16/16 11:58 09/16/16 16:26 09/16/16 16:26 09/16/16 16:26 09/16/16 16:26 Oxygen Devices in Use Now: None Appearance: Disheveled, in NAD Respiratory: Symmetrical Chest Expansion and Respiratory Effort, Clear to Auscultation Cardiovascular: NL Sounds; No Murmurs; No JVD, RRR Abdominal: NL Sounds; No Tenderness; No Distention Extremities: No Edema Skin: No Rash or Ulcers Neurological: Alert and Oriented x 3 Result Diagrams: 09/16/16 05:45 09/16/16 05:45 Additional Lab and Data: . Microbiology and Other Data: Microbiology 09/11/16 00:10 Aerobic Blood Culture - Final Blood Venous Strep Mitis/Strep Oralis Anaerobic Blood Culture - Final Staphylococcus Epidermidis Blood Culture - Final 09/11/16 00:10 Aerobic Blood Culture - Final Blood Venous Staphylococcus Epidermidis Anaerobic Blood Culture - Preliminary No Growth Day 2 Blood Culture - Final Blood MRSA/MSSA (PCR) - Final Mrsa Negative S.aureus Negative Diagnostic Imaging: CXR - possible interstitial edema CT brain - NAD Echo - EF 45-50%, no vegetations or other valvular disease MARIZA - neg vegetations MRI brain - NAD Assess/Plan/Problems-Billing . Assessment: 50 yo man with ESRD/HD with altered mental status. Was visiting [place] and got dropped off at [facility] with altered mental status. - Patient Problems (1) Encephalopathy Comment: Likely toxic secondary to opiate overdose as he did respond initially to narcan His level of alertness has improved, but his persistently confused It is unlikely that his confusion is still related to acute ingestion as he has undergone 3 dialysis sessions without resolution Spoke with his PCP Dr Lacho Ellsworth out of [place] who reported this behavior is unusual for him and has no history of psychosis, he states he has seen him in a similar state when missing dialysis in the past, likely due to uremia and it often takes several days for him to clear MRI is negative for acute pathology Appreciated input from psychiatry who does not believe his persistent symptoms are indicative of underlying psychiatric pathology but suggested initiating low dose antipsychotic Discussed best choice in the setting of ESRD with pharmacy who suggested risperdal Started 0.5mg Risperdal bid Some improvement in aggressive behavior, but patient remains quite confused and unsafe for discharge (2) Bacteremia due to Staphylococcus Comment: Initial blood cultures grew staph epi in 2/4 bottles and strep in 1/4 bottles Repeat cultures are negative No obvious source of infection TTE and MARIZA neg for vegetation ?whether initial blood cultures were a contaminant Discontinued vancomycin at this time (3) ESRD (end stage renal disease) on dialysis Comment: - M,W,F HD (4) Demand ischemia Comment: No evidence of ACS Likely due to septicemia and poor renal clearance (5) HTN (hypertension) Comment: Near normotensive on reported home regimen Status and Disposition: Patient requires continued inpatient care. Discharge planning is not clear at this time. He remains unsafe for discharge.
[2016-09-16] MEDS: Haloperidol TAB* 5 MG PO ONE (19:18)
[2016-09-16] MEDS ORDERED: oxyCODONE TAB* 5 MG TAB PO ONE (21:10)
[2016-09-17] MEDS: Acetaminophen TAB* 325 MG PO PRN ×3 (04:59→22:39)
[2016-09-17] MEDS: Heparin VIAL(*) 5000 UNITS/ML VIAL (FIVE THOUSAND) SUBCUT SCH ×3 (04:59→22:40)
--- NOTE | 2016-09-17 08:15 | PTEDU ---
Patient Name: JAVI HASSAN JAVI HASSAN selected video: Bone Fractures and Sprains to view on 09/17/2016 at 8:13:53 AM f rom [id number]
[2016-09-17] MEDS: Gabapentin CAP(*) 300 MG PO SCH (08:59)
[2016-09-17] MEDS: Sevelamer TAB* 800 MG PO SCH ×3 (08:59→17:34)
[2016-09-17] MEDS: Carvedilol TAB* 25 MG PO SCH ×2 (09:00→22:38)
[2016-09-17] MEDS: Cetirizine* 10 MG TAB PO SCH (09:00)
[2016-09-17] MEDS: Citalopram TAB* 40 MG PO SCH (09:00)
[2016-09-17] MEDS: Haloperidol TAB* 5 MG PO ONE (12:44)
--- NOTE | 2016-09-17 13:04 | PN ---
Subjective Date of Service: 09/17/16 Interval History: Patient is wanting to be discharge stating he will leave AMA if not discharge. He appropriately calmed down after I spoke with him. His girlfriend was on speaker phone with both the patient and myself and she has concerns that he is still "acting funny" and does not think he is safe for discharge. She does state he appears to be getting better daily. The patient denies fever or chills, Reports good appetite. No N/V/D or TREVIÑO. Only compliant is being kept in hospital. Family History: Unchanged from Admission Social History: Unchanged from Admission Past Medical History: Unchanged from Admission Objective Active Medications: Acetaminophen (Tylenol Tab*) 650 mg PO Q4H PRN PRN Reason: FEVER/PAIN Last Admin: 09/17/16 10:11 Dose: 650 mg Carvedilol (Coreg Tab*) 25 mg PO BID [facility] Last Admin: 09/17/16 09:00 Dose: 25 mg Cetirizine HCl (Zyrtec*) 10 mg PO DAILY [facility] Last Admin: 09/17/16 09:00 Dose: 10 mg Citalopram Hydrobromide (Celexa Tab*) 40 mg PO DAILY [facility] Last Admin: 09/17/16 09:00 Dose: 40 mg Clonidine HCl (Gdrltxhl-Lqv-2 0.3 Mg Patch*) 0.3 mg TRANSDERM Q7D [facility] Last Admin: 09/11/16 06:32 Dose: 0.3 mg Gabapentin (Neurontin Cap(*)) 300 mg PO DAILY [facility] Last Admin: 09/17/16 08:59 Dose: 300 mg Heparin Sodium (Porcine) (Heparin Vial(*)) 5,000 units SUBCUT Q8HR [facility] Last Admin: 09/17/16 12:44 Dose: Not Given Risperidone (Risperdal) 0.5 mg PO BID [facility] Last Admin: 09/17/16 09:00 Dose: 0.5 mg Sevelamer Carbonate (Renvela Tab*) 1,600 mg PO TID WITH MEALS [facility] Last Admin: 09/17/16 12:40 Dose: 1,600 mg Vital Signs 09/16/16 09/16/16 09/16/16 13:24 16:26 20:00 Temperature Pulse Rate 74 Respiratory 16 18 18 Rate Blood Pressure 127/67 (mmHg) O2 Sat by Pulse 99 Oximetry 09/16/16 09/16/16 09/17/16 21:22 23:22 01:13 Temperature 97.9 F Pulse Rate 66 Respiratory 18 18 18 Rate Blood Pressure 118/64 (mmHg) O2 Sat by Pulse 100 Oximetry 09/17/16 09/17/16 09/17/16 08:00 08:09 08:59 Temperature 97.9 F Pulse Rate 61 Respiratory 18 16 20 Rate Blood Pressure 134/71 (mmHg) O2 Sat by Pulse 100 Oximetry 09/17/16 10:59 Temperature Pulse Rate Respiratory 18 Rate Blood Pressure (mmHg) O2 Sat by Pulse Oximetry Oxygen Devices in Use Now: None Appearance: 50 yo male chroncially ill appearing A+O x3, slightly agitated with noted confusion Eyes: No Scleral Icterus, PERRLA Ears/Nose/Mouth/Throat: NL Teeth, Lips, Gums, Mucous Membranes Moist Neck: NL Appearance and Movements; NL JVP Respiratory: Symmetrical Chest Expansion and Respiratory Effort, Clear to Auscultation Cardiovascular: NL Sounds; No Murmurs; No JVD, RRR, No Edema Abdominal: NL Sounds; No Tenderness; No Distention Extremities: No Edema, No Clubbing, Cyanosis Skin: - - multiple scabbed areas on skin, face - appears 2nd to picking Neurological: Alert and Oriented x 3, NL Sensation, NL Gait, NL Muscle Strength and Tone Lines/Tubes/Other Access: Clean, Dry and Intact Peripheral IV Nutrition: Taking PO's Result Diagrams: 09/16/16 05:45 09/16/16 05:45 Additional Lab and Data: . Microbiology and Other Data: Microbiology 09/11/16 00:10 Aerobic Blood Culture - Final Blood Venous Strep Mitis/Strep Oralis Anaerobic Blood Culture - Final Staphylococcus Epidermidis Blood Culture - Final 09/11/16 00:10 Aerobic Blood Culture - Final Blood Venous Staphylococcus Epidermidis Anaerobic Blood Culture - Preliminary No Growth Day 2 Blood Culture - Final Blood MRSA/MSSA (PCR) - Final Mrsa Negative S.aureus Negative Diagnostic Imaging: CXR - possible interstitial edema CT brain - NAD Echo - EF 45-50%, no vegetations or other valvular disease MARIZA - neg vegetations MRI brain - NAD Assess/Plan/Problems-Billing . Assessment: 50 yo man with ESRD/HD with altered mental status. Was visiting [place] and got dropped off at [facility] with altered mental status. - Patient Problems (1) Encephalopathy Comment: Slowly improving. Likely toxic secondary to opiate overdose as he did respond initially to narcan His level of alertness has improved daily, but continues to be mildy confused It is unlikely that his confusion is still related to acute ingestion as he has undergone 3 dialysis sessions without resolution DONA Willams, spoke with his PCP Dr Lacho Ellsworth out of [place] who reported this behavior is unusual for him and has no history of psychosis, he states he has seen him in a similar state when missing dialysis in the past, likely due to uremia and it often takes several days for him to clear MRI is negative for acute pathology Appreciated input from psychiatry who does not believe his persistent symptoms are indicative of underlying psychiatric pathology but suggested initiating low dose antipsychotic Best choice in the setting of ESRD Risperdal 0.5 mg bid Some improvement in aggressive behavior, but patient remains quite confused and not at baseline, continues to be unsafe for discharge (2) Opiate overdose Comment: - unable to get urine for UDS - empiric narcan 09/11 resulted in patient getting belligerant and wild ( confirming opiates in system) - patient denies opiate abuse - when it was clear per previous provider he admitted to illicit use. He denies he has a problem. (3) Bacteremia due to Staphylococcus Comment: Initial blood cultures grew staph epi in 2/4 bottles and strep in 1/4 bottles Repeat cultures are negative No obvious source of infection TTE and MARIZA neg for vegetation Suspect initial blood cultures were a contaminant No abx at this time (4) Demand ischemia Comment: No evidence of ACS Likely due to septicemia and poor renal clearance (5) ESRD (end stage renal disease) on dialysis Comment: - M,W,F HD (6) HTN (hypertension) Comment: Near normotensive on reported home regimen (7) Patient incapable of making informed decisions Comment: - 09/15/16 the patient was evaluted by psych who deemed the patient not to have capacity. On my evaluation today, the patient continues to not be at his baseline, and is deemed unsafe for discharge. Status and Disposition: Patient requires continued inpatient care. Discharge planning is not clear at this time. He remains unsafe for discharge.
[2016-09-18] MEDS: cloNIDine 0.3 MG PATCH* 0.3 MG/24 HR 7 DAY PATCH TRANSDERM SCH ×2 (05:39→05:42)
[2016-09-18] MEDS: Heparin VIAL(*) 5000 UNITS/ML VIAL (FIVE THOUSAND) SUBCUT SCH ×2 (05:43→13:33)
[2016-09-18] MEDS: Sevelamer TAB* 800 MG PO SCH ×2 (07:52→12:21)
[2016-09-18] MEDS: Citalopram TAB* 40 MG PO SCH (07:52)
[2016-09-18] MEDS: Gabapentin CAP(*) 300 MG PO SCH (07:53)
[2016-09-18] MEDS: Cetirizine* 10 MG TAB PO SCH (07:53)
[2016-09-18 07:54] VITALS: BP 150/84
[2016-09-18] MEDS: Carvedilol TAB* 25 MG PO SCH (07:54)
[2016-09-18] MEDS ORDERED: DOXYcycline CAP(*) 100 MG PO PRN (08:47)
--- NOTE | 2016-09-18 12:12 | PN ---
Subjective Date of Service: 09/18/16 Interval History: Per nursing staff pt has been much calmer and appropriate. Today on exam pt is A +O x3 much more clear. He apologized for "acting crazy". He was able to tell me what would have happened if he left AMA without treatment and or dialysis stating "I could have ". Per girlfriend he is back to his baseline and doesnt appear to be confused today. Plan for pt to have dialysis then go home today Pt's only complaint is bilateral wrist pain secondary to "arthritis". Denies TREVIÑO , fever or chills. No SOB or CP. Reports some mild LE ankle edema which he states is normal. Family History: Unchanged from Admission Social History: Unchanged from Admission Past Medical History: Unchanged from Admission Objective Active Medications: Acetaminophen (Tylenol Tab*) 650 mg PO Q4H PRN PRN Reason: FEVER/PAIN Last Admin: 09/17/16 22:39 Dose: 650 mg Carvedilol (Coreg Tab*) 25 mg PO BID [facility] Last Admin: 09/18/16 07:54 Dose: 25 mg Cetirizine HCl (Zyrtec*) 10 mg PO DAILY [facility] Last Admin: 09/18/16 07:53 Dose: 10 mg Citalopram Hydrobromide (Celexa Tab*) 40 mg PO DAILY [facility] Last Admin: 09/18/16 07:52 Dose: 40 mg Clonidine HCl (Mxvkgwue-Kpt-4 0.3 Mg Patch*) 0.3 mg TRANSDERM Q7D [facility] Last Admin: 09/18/16 05:42 Dose: 0.3 mg Doxycycline Hyclate (Vibramycin Cap(*)) 100 mg PO DAILY PRN PRN Reason: PER PROTOCOL Gabapentin (Neurontin Cap(*)) 300 mg PO DAILY [facility] Last Admin: 09/18/16 07:53 Dose: 300 mg Heparin Sodium (Porcine) (Heparin Vial(*)) 5,000 units SUBCUT Q8HR [facility] Last Admin: 09/18/16 05:43 Dose: Not Given Risperidone (Risperdal) 0.5 mg PO BID [facility] Last Admin: 09/18/16 07:52 Dose: 0.5 mg Sevelamer Carbonate (Renvela Tab*) 1,600 mg PO TID WITH MEALS [facility] Last Admin: 09/18/16 07:52 Dose: 1,600 mg Vital Signs 09/17/16 09/17/16 09/17/16 15:48 20:00 22:35 Temperature 98.0 F 97.9 F Pulse Rate 68 70 Respiratory 18 18 18 Rate Blood Pressure 151/79 150/77 (mmHg) O2 Sat by Pulse 99 100 Oximetry 09/18/16 09/18/16 09/18/16 07:28 07:53 08:00 Temperature 98.3 F Pulse Rate 72 Respiratory 16 18 16 Rate Blood Pressure 150/84 (mmHg) O2 Sat by Pulse 100 Oximetry 09/18/16 09:53 Temperature Pulse Rate Respiratory 16 Rate Blood Pressure (mmHg) O2 Sat by Pulse Oximetry Oxygen Devices in Use Now: None Appearance: 50 yo chronically ill appearing male sitting up in a chair in [facility], appropriate to situation Eyes: No Scleral Icterus, PERRLA Ears/Nose/Mouth/Throat: NL Teeth, Lips, Gums Neck: NL Appearance and Movements; NL JVP Respiratory: Symmetrical Chest Expansion and Respiratory Effort, Clear to Auscultation Cardiovascular: NL Sounds; No Murmurs; No JVD, RRR, No Edema Abdominal: NL Sounds; No Tenderness; No Distention Lymphatic: No Cervical Adenopathy Extremities: No Edema, No Clubbing, Cyanosis Skin: No Rash or Ulcers, No Nodules or Sclerosis Neurological: Alert and Oriented x 3, NL Sensation, NL Gait, NL Muscle Strength and Tone Lines/Tubes/Other Access: Clean, Dry and Intact Peripheral IV Result Diagrams: 09/16/16 05:45 09/16/16 05:45 Additional Lab and Data: . Microbiology and Other Data: Microbiology 09/11/16 00:10 Aerobic Blood Culture - Final Blood Venous Strep Mitis/Strep Oralis Anaerobic Blood Culture - Final Staphylococcus Epidermidis Blood Culture - Final 09/11/16 00:10 Aerobic Blood Culture - Final Blood Venous Staphylococcus Epidermidis Anaerobic Blood Culture - Preliminary No Growth Day 2 Blood Culture - Final Blood MRSA/MSSA (PCR) - Final Mrsa Negative S.aureus Negative Diagnostic Imaging: CXR - possible interstitial edema CT brain - NAD Echo - EF 45-50%, no vegetations or other valvular disease MARIZA - neg vegetations MRI brain - NAD Assess/Plan/Problems-Billing . Assessment: 50 yo man with ESRD/HD with altered mental status. Was visiting [place] and got dropped off at [facility] with altered mental status. - Patient Problems (1) Encephalopathy Comment: Back to baseline, acting appropriately, girlfriend confirms this. Likely toxic encepalopathy secondary to opiate and sleeping pill overdose as he did respond initially to narcan DONA Willams, spoke with his PCP Dr Lacho Ellsworth out of [place] who reported this behavior is unusual for him and has no history of psychosis, he states he has seen him in a similar state when missing dialysis in the past, likely due to uremia and it often takes several days for him to clear MRI is negative for acute pathology Appreciated input from psychiatry who does not believe his persistent symptoms are indicative of underlying psychiatric pathology but suggested initiating low dose antipsychotic - Best choice in the setting of ESRD Risperdal 0.5 mg bid - pt has refused to take this at Discharge Pt is safe for discharge home, he shows clarity and the ability to make good decisions as well he understands the outcome of noncompliance and polypharmacy. He is refusing her has a drug problem that requires rehab. (2) Opiate overdose Comment: - possible - unable to get urine for UDS - empiric narcan 09/11 resulted in patient getting belligerant and wild ( confirming opiates in system) - patient denies opiate abuse - when it was clear per previous provider he admitted to illicit use. He denies he has a problem. (3) Bacteremia due to Staphylococcus Comment: Initial blood cultures grew staph epi in 2/4 bottles and strep in 1/4 bottles Repeat cultures are negative No obvious source of infection TTE and MARIZA neg for vegetation Suspect initial blood cultures were a contaminant No abx at this time (4) Diarrhea Comment: - started today with losse stools. Pt reports he frequently has loose stools - possible opioid withdrwawl? No other sympoms such as abd pain, nausea or fever. (5) Demand ischemia Comment: No evidence of ACS Likely due to poor renal clearance (6) ESRD (end stage renal disease) on dialysis Comment: - M,W,F HD (7) HTN (hypertension) Comment: Near normotensive on reported home regimen Status and Disposition: Inpatient, plan for DC to home.
[2016-09-18] MEDS ORDERED: Loperamide CAP* 2 MG PO ONE (15:57)
--- NOTE | 2016-09-19 04:36 | DS ---
DISCHARGE SUMMARY: DATE OF ADMISSION: 09/11/16 DATE OF DISCHARGE: 09/18/16 PROVIDER: Jerica Liu NP ATTENDING PHYSICIAN: Dr. Concepcion *(report dictated by Jerica Liu NP). PRIMARY CARE PROVIDER: Dr. Landin. FORENSIC AUDIT EXPERT: Dr. Brooks. PRIMARY DIAGNOSES: 1. Altered mental status, suspect encephalopathy secondary to polypharmacy, possible opioid overdose. 2. End-stage renal disease, on hemodialysis. 3. Hypertension DISCHARGE MEDICATIONS: 1. Clonidine 0.1 mg p.o. b.i.d. 2. Coreg 25 mg p.o. b.i.d. 3. Doxycycline 100 mg p.o. daily. 4. Trazodone 50 mg p.o. at bedtime p.r.n. 5. Neurontin 300 mg p.o. daily. 6. Renvela 800 mg p.o. t.i.d. 7. Lexapro 20 mg p.o. daily. HISTORY OF PRESENT ILLNESS AND HOSPITAL COURSE: Please see history and physical by Dr. Concepcion for full admission details; but in summary, this is a 50- year-old male who is chronically ill with end-stage renal disease who presented to the emergency department on 09/11/16 with altered mental status. His girlfriend activated EMS and he was found lying on the floor supine in her residence. He was given Narcan in the field which he responded to. He was found to be hypertensive with a systolic blood pressures 210/126. In the emergency department, the patient still continued to have altered mental status. He was admitted to the hospitalist service with the diagnosis of encephalopathy secondary to toxic metabolic state thought to be secondary to potential opioid overdose. A urine tox drug screen could not be obtained because the patient does not make urine. The patient's labs on admission showed a leukocytosis of 11, sodium of 129, troponin of 0.13, CRP of 90, total creatine kinase of 970. The patient initially underwent a brain CT in the emergency department, which showed no acute intracranial pathology. The patient went to dialysis the next day and had further improvement in his mental status; however, he still continued to appear to have encephalopathy with confusion and was aggressive with the staff. The patient underwent a brain MRI, which showed no evidence of acute infarct and possible chronic sinusitis in the right maxillary sinus and some microvascular change. The patient's first initial set of blood cultures showed 2/4 bottles of Staphylococcus epidermidis and 1/4 bottles of streptomyces. The patient was started on vancomycin. The patient underwent a transthoracic echocardiogram and a MARIZA, which showed no vegetation. The patient had a second set of blood cultures drawn, which were 4/ 4 bottles with no growth. The patient's antibiotics were discontinued as these were thought to be contaminants. The patient was seen by psychiatrist, Dr. Paras Covarrubias, due the patient's threatening to leave against medical advice and being aggressive with the staff. This was still at the time where we thought the patient required IV antibiotics for possible bacteremia, which was ruled out. The psychiatrist deemed the patient not competent to make safe decisions and therefore, he was deemed to lack competency. It was recommended to start the patient on Risperdal , which was initiated. In regards to the patient's elevated troponin of 0.13, which trended down to 0.11. This was thought to be secondary to demand ischemia. There is no evidence of acute coronary syndrome. The patient has continued to receive dialysis Wednesday, Wednesday, Fridays. His encephalopathy has greatly improved over the course of the last couple days. The patient was starting to leave AMA yesterday on my service and I was able to have a conversation with the patient explaining that it was thought that he was still mildly confused and I was strongly recommending he stay overnight and the patient agreed to this due to also that his girlfriend thought that he was not at his baseline and was noted to have some mild confusion. Today, on reassessment, the patient is alert and oriented x3. He has been very appropriate, pleasant, cooperative and shows good judgment. The patient states understanding of what happened and is able to full understand what may happen if he were to skip dialysis and/or what would have happened if he left without proper treatment. I believe the patient has competency to make his own decisions as well and the patient is stable for discharge to home today. I spoke with his girlfriend who reports the patient appears to be back at his baseline. She has not noted any confusion today and she agrees with this plan as well. I discussed with the patient at length that I am suspicious he may abuse illicit opioids and which he denied to me but prior provider notes states that he reported this. The patient reports that he is prescribed opioids by his doctor in [place]. The patient has not received any opioids throughout hospitalization and has complained of some arthritic pain in his wrist in which he has asked for opioids, but he has only been given acetaminophen. The patient is noted to have some diarrhea today in which he does not appear to have an acute gastroenteritis. He has no abdominal pain. No nausea. It is possible that the patient is having some withdrawal and/or the patient does report at baseline, he has intermittent diarrhea and this could be irritable bowel syndrome. The patient has been setup with home care through [facility]. He received dialysis today here at the hospital and will be discharged home afterwards. The dialysis team here will set him back up with his previous schedule in [place] to return to his dialysis schedule. The patient was given information about drug rehab services in which he has adamantly refused that he needs and/or has a problem. DIAGNOSTIC TESTS WHILE HOSPITALIZED: Transthoracic echocardiogram: Conclusion : "The left ventricular chamber size is normal. [id number] concentric left ventricular hypertrophy is observed. There is diffuse global hypokinesis of the left ventricle. There is mildly decreased left ventricular systolic function. The estimated ejection fraction is 45% to 50%. The left atrium is mildly dilated. The right ventricular cavity is normal. The right ventricular global systolic function is mildly reduced. No significant valvular abnormalities noted. Transesophageal echocardiogram: Conclusions: "Global left ventricular wall motion and contractility within normal limits. There is normal left ventricular systolic function. The estimated ejection fraction is 55% to 60%. There is no thrombus visualized in the left atrial appendage. Interatrial septum appears intact without evidence of shunting. A patent foramen ovale is not demonstrated with color Doppler and agitated contrast. There is no evidence of aortic regurgitation. There is no aortic vegetation. There is mild mitral regurgitation. No vegetation is observed on the mitral valve. There is trace tricuspid regurgitation. No vegetation is observed in the tricuspid valve. No vegetation is observed in . There is no significant pericardial effusion." Brain MRI: Impression: "No evidence for acute infarct is noted. Periventricular signal abnormality is consistent with microvascular change. Chronic sinusitis, right maxillary sinus." Brain CT: Impression: "No acute intracranial pathology." Chest x-ray: Impression: "Suspect interstitial congestion, but this must be correlated with the clinical history." DISCHARGE PLAN: 1. The patient is stable for discharge to home. He received dialysis today in our clinic and the dialysis nurse will set the patient up to return to [place] at his primary dialysis clinic. 2. The patient is to follow up with his primary care provider next week. 3. The patient has been setup with [facility] in [place]. TIME SPENT: Approximately 60 minutes were spent on this discharge. JERICA LIU NP CC: Dr. Landin; Dr. Brooks* [id number]/CPS #: [id number]
== END 2016-09-18 17:15 | disposition home health service (06) | DRG 917 ==
LOC: ED 21:37 → MEDTELE 09-11 03:54 → MED 09-11 13:30
PROVIDERS: ADMIT Internal Medicine; ATTEND Hospitalist
PROC: 5A1D60Z (ICD-10-PCS; principal; 2016-09-11)
PROC: B24BZZ4 Ultrasonography of Heart with Aorta, Transesophageal (ICD-10-PCS; 2016-09-14)
DX: T40.2X1A Poisoning by other opioids, accidental (unintentional), initial encounter (principal); G92 Toxic encephalopathy; I12.0 Hypertensive chronic kidney disease with stage 5 chronic kidney disease or end stage renal disease; I24.8 Other forms of acute ischemic heart disease; N18.6 End stage renal disease; Y92.009 Unspecified place in unspecified non-institutional (private) residence as the place of occurrence of the external cause; R19.7 Diarrhea, unspecified; M25.532 Pain in left wrist; M25.531 Pain in right wrist; Z99.2 Dependence on renal dialysis
CPT/HCPCS: 36415; 70450; 70551; 71010; 80048; 80053; 80202; 80320; 80329; 82140; 82550; 83605; 83880; 84100; 84145; 84484; 85025; 85652; 86140; 86141; 87040; 87077; 87150; 87186; 87205; 90935; 93005; 93306; A9270-GY; G0257; G0480; J0360; J0696; J1644; J2060; J2250; J2310; J3010; J3370